=== PATIENT | male | born 1970 | race Caucasian/White ===

== ENCOUNTER 2019-01-14 11:06 | Emergency (ER) | payer BC, OTHER ==
[2019-01-14 11:13] VITALS: TEMP 98.2; BMI 29.0
[2019-01-14] MEDS ORDERED: IBUPROFEN 600 MG TABLET (FP) PO ONE ×2 (11:16→11:23)
--- NOTE | 2019-01-14 11:58 | PDOC ---
History of Present Illness - General Chief Complaint: Pain, Acute Stated Complaint: LEFT HAND PAIN Time Seen by Provider: 01/14/19 11:11 History Source: Patient Exam Limitations: No Limitations - History of Present Illness Initial Comments: 01/14/19 11:52 48-year-old healthy male presents with left index finger injury. 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 No other injuries, no motor or sensory deficit, but now with increasing swelling with difficulty bending, presents for evaluation. Pain and swelling is mostly isolated to the proximal phalanx of the left index finger, no other complaints. Past History - Past Medical History Allergies/Adverse Reactions: Allergies Allergy/AdvReac Type Severity Reaction Status Date / Time No Known Allergies Allergy Verified 01/14/19 11:06 Home Medications: Ambulatory Orders NK [No Known Home Medication] 01/14/19 Anemia: No Asthma: No Cancer: No Cardiac Disorders: Yes (PERICARDITIS 2006) CVA: No COPD: No CHF: No Dementia: No Diabetes: No GI Disorders: Yes (2-3 WKS WITH ABDOMINAL PAIN) Disorders: No HTN: No Hypercholesterolemia: No Liver Disease: No Seizures: No Thyroid Disease: No - Surgical History Abdominal Surgery: No Appendectomy: No Cardiac Surgery: No Cholecystectomy: No Lung Surgery: No Neurologic Surgery: No Orthopedic Surgery: Yes (LEFT KNEE ACL REPAIR 08/1993) - Psycho Social/Smoking Cessation Hx Smoking History: Former smoker Have you smoked in the past 12 months: No If you are a former smoker, when did you quit?: 2005 Information on smoking cessation initiated: No Hx Alcohol Use: No Drug/Substance Use Hx: No Substance Use Type: Alcohol Hx Substance Use Treatment: No Review of Systems - Review of Systems Musculoskeletal: Yes: See HPI Integumentary: No: Symptoms Reported Neurological: No: Tingling, Weakness *Physical Exam - Vital Signs Last Vital Signs Temp Pulse Resp BP Pulse Ox 98.2 F 82 17 162/117 H 98 01/14/19 11:06 01/14/19 11:06 01/14/19 11:06 01/14/19 11:06 01/14/19 11:06 - Physical Exam Comments: 01/14/19 11:53 Vital signs as noted GENERAL: The patient is awake, alert, and fully oriented, in no acute distress. HEAD: Normal with no signs of trauma. EYES: Pupils equal, round and reactive to light, extraocular movements intact, sclera anicteric, conjunctiva clear. EXTREMITIES: Left hand: Circumferential soft tissue swelling to the left index finger over the proximal and middle phalanx, some discomfort to palpation of the proximal phalanx without palpable deformity or dislocation. 5 out of 5 flexion/extension of the MCP/PIP/DIP, brisk cap refill and sensory intact distally. NEUROLOGICAL: Normal speech, normal gait. PSYCH: Normal mood, normal affect. SKIN: 1 to 2 mm abrasion on the dorsal aspect of the proximal phalanx of the left index finger, no laceration. Otherwise warm, Dry, normal turgor, no rashes or lesions noted. ED Treatment Course - RADIOLOGY Radiology Studies Ordered: Category Date Time Status HAND- LEFT [RAD] Stat Radiology 01/14/19 11:16 Completed - Medications Given in the ED: ED Medications Discontinued Medications Generic Name Dose Route Start Last Admin Trade Name Magnoq PRN Reason Stop Dose Admin Ibuprofen 600 mg 01/14/19 11:16 01/14/19 11:26 Motrin - PO 01/14/19 11:17 600 mg ONCE ONE Administration Medical Decision Making - Medical Decision Making 01/14/19 11:55 48-year-old male with isolated left index finger crush injury, neurovascularly intact here without other injuries. Likely contusion, rule out fracture. Ibuprofen for pain X-ray shows no evidence of fracture or dislocation RICE, return precautions discussed Discharge - Discharge Information Problems reviewed: Yes Clinical Impression/Diagnosis: Contusion of left index finger Qualifiers: Encounter type: initial encounter Damage to nail status: without damage Qualified Code(s): S60.022A - Contusion of left index finger without damage to nail, initial encounter Condition: Stable Disposition: HOME - Follow up/Referral - Patient Discharge Instructions Patient Printed Discharge Instructions: DI for Contusion Additional Instructions: The finger is bruised with a contusion, but an x-ray shows no fracture (break) or dislocation. Activity as tolerated. Stay hydrated. Tylenol 1000 mg every 8 hours and/or ibuprofen 600 mg every 8 hours as needed for pain. Ice and elevate the affected areas for 20 minutes every 3-4 hours to reduce swelling. Continue your medications as previously prescribed by your physician. You should follow up with your primary doctor as needed regarding today's emergency department visit. Return to the emergency department for any new or concerning symptoms, particularly severe swelling or discoloration, numbness or weakness, intolerable pain, redness or pus or fever. - Post Discharge Activity
[2019-01-14 12:03] VITALS: BP 166/110; PULSE 78
== END 2019-01-14 12:04 | disposition home or self-care (01) ==
LOC: FER 11:06
DX: S60.022A Contusion of left index finger without damage to nail, initial encounter (principal); X58.XXXA Exposure to other specified factors, initial encounter; Y93.89 Activity, other specified; Y92.89 Other specified places as the place of occurrence of the external cause; Y99.0 Civilian activity done for income or pay; R10.9 Unspecified abdominal pain; I31.9 Disease of pericardium, unspecified; Z87.891 Personal history of nicotine dependence
CPT/HCPCS: 73130-TC-LT-FY; 99282-25

== ENCOUNTER 2019-03-19 09:12 | Emergency (ER) | payer OTHER ==
--- NOTE | 2019-03-19 09:19 | PDOC ---
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 Pain medial knee. Worse with ambulation. No sensation of instability. Review of systems: No distal numbness tingling pain or weakness of the lower leg ankle or foot. No other injuries including pain or injury to the head neck chest abdomen spine pelvis or other extremities Past medical history: No active medical or surgical problems. No allergies Social/family history reviewed and noncontributory Physical exam: Alert and oriented well-developed well-nourished no acute distress cooperative. Ambulating adequately with only a slight limp Afebrile, vital signs normal Right knee: No swelling, effusion, deformity, erythema, or warmth. There is point tenderness over the MCL, with stress tenderness, no laxity. Benny is negative. LCL without tenderness or laxity. Patella and patellar retinaculum intact and nontender. Straight leg raising intact. Pulses full. No distal sensory or motor deficits. X-ray: Negative Impression: MCL strain Plan: Rest ice elevate Napoleon wrap anti-inflammatories. Follow-up orthopedist if pain persists. Adequately ambulatory and in no distress at discharge to follow- up as directed Past History - Past Medical History Allergies/Adverse Reactions: Allergies Allergy/AdvReac Type Severity Reaction Status Date / Time No Known Allergies Allergy Verified 03/19/19 09:20 Home Medications: Ambulatory Orders NK [No Known Home Medication] 03/19/19 Anemia: No Asthma: No Cancer: No Cardiac Disorders: Yes (PERICARDITIS 2006) CVA: No COPD: No CHF: No Dementia: No Diabetes: No GI Disorders: Yes (2-3 WKS WITH ABDOMINAL PAIN) Disorders: No HTN: No Hypercholesterolemia: No Liver Disease: No Seizures: No Thyroid Disease: No - Surgical History Abdominal Surgery: No Appendectomy: No Cardiac Surgery: No Cholecystectomy: No Lung Surgery: No Neurologic Surgery: No Orthopedic Surgery: Yes (LEFT KNEE ACL REPAIR 08/1993) - Psycho Social/Smoking Cessation Hx Smoking History: Former smoker Have you smoked in the past 12 months: No If you are a former smoker, when did you quit?: 2006 Hx Alcohol Use: No Drug/Substance Use Hx: No Substance Use Type: Alcohol Hx Substance Use Treatment: No Discharge - Discharge Information Problems reviewed: Yes Clinical Impression/Diagnosis: MCL sprain of right knee Qualifiers: Encounter type: initial encounter Qualified Code(s): S83.411A - Sprain of medial collateral ligament of right knee, initial encounter Condition: Stable Disposition: HOME - Admission No - Follow up/Referral - Patient Discharge Instructions Patient Printed Discharge Instructions: How to Use an Elastic Bandage-Knee Sprain, DI for Knee Sprain Additional Instructions: Rest ice and elevate Ibuprofen as directed Recheck orthopedist in 1 week if pain persists. - Post Discharge Activity Work/Back to School Note: Back to Work
[2019-03-19] MEDS ORDERED: IBUPROFEN 400 MG TABLET (FP) PO ONE ×2 (09:30→09:37)
[2019-03-19 09:35] VITALS: TEMP 98; BMI 30.3
[2019-03-19 10:40] VITALS: BP 155/98; PULSE 66
== END 2019-03-19 10:41 | disposition home or self-care (01) ==
LOC: FER 09:12
DX: S83.411A Sprain of medial collateral ligament of right knee, initial encounter (principal); W00.0XXA Fall on same level due to ice and snow, initial encounter; Y93.89 Activity, other specified; Y92.410 Unspecified street and highway as the place of occurrence of the external cause; Y99.0 Civilian activity done for income or pay; K92.9 Disease of digestive system, unspecified; Z87.891 Personal history of nicotine dependence
CPT/HCPCS: 73560-TC-RT-FY; 99282-25

== ENCOUNTER 2020-06-04 15:00 | Emergency (ER) | payer OTHER ==
[2020-06-04 15:07] VITALS: BP 155/83; PULSE 97; TEMP 97.9; BMI 30.4
== END 2020-06-04 17:10 | disposition home or self-care (01) ==
LOC: FER 15:00
DX: S99.911A Unspecified injury of right ankle, initial encounter (principal)
CPT/HCPCS: 73610-TC-RT-FY; 73630-TC-RT-FY; 99284-25